=== PATIENT | male | born 1945 | race Caucasian/White ===

== ENCOUNTER 2022-12-11 08:12 | Day surgery (SDC) | payer MEDICARE, BC | END 2022-12-11 11:35 | disposition home or self-care (01) | LOC: RAD 08:12 | PROVIDERS: ATTEND Neurological Surgery | PROC: 00JU3ZZ Inspection of Spinal Canal, Percutaneous Approach (ICD-10-PCS; principal; 2022-12-11) | DX: G91.2 (Idiopathic) normal pressure hydrocephalus (principal) | CPT/HCPCS: 62270 ==

== ENCOUNTER 2023-01-21 05:42 | Inpatient (IN) | payer MEDICARE, BC ==
[2023-01-17 14:14] VITALS: BMI 23.7
[2023-01-21] MEDS ORDERED: EPINEPHrine 1 MG/ML VIAL ONE (06:12)
[2023-01-21] MEDS ORDERED: Lidocaine 1% (PF) 30 ML VIAL ONE (06:12)
[2023-01-21] MEDS ORDERED: Vancomycin 1 GM VIAL ONE (06:12)
[2023-01-21] MEDS ORDERED: Thrombin 5000 UNITS/5 ML VIAL ONE (06:12)
[2023-01-21] MEDS ORDERED: PROPOFOL 20 ML ONE (06:23)
[2023-01-21] MEDS ORDERED: fentaNYL PF 100 MCG/2 ML SYRINGE ONE (06:23)
[2023-01-21] MEDS ORDERED: Lidocaine 1% PF 5 ML VIAL ONE ×2 (06:24→07:12)
[2023-01-21] MEDS ORDERED: Rocuronium Bromide 10 MG/ML (10ML VIAL) ONE ×2 (06:24→07:12)
[2023-01-21] MEDS ORDERED: Vancomycin HCl 20 MG, Gentamicin (PEDI) 8 MG, Admixture Fee 1 EACH in Sodium Chloride 0... FS SCH (06:30)
[2023-01-21 06:39] LABS: Hematocrit 29.9 % (42.0-52.0); Manual Diff?? YES; Mean Corpuscular HGB CONC 33.4 g/dL (32.0-36.0); Mean Corpuscular Hemoglobin 35.5 pg (27.0-31.0); Platelet Count 231 10x3/uL (130-400); RBC Distribution Width 26.6 % (11.5-14.5); Red Blood Cell (RBC) Count 2.82 mill/uL (4.70-6.10); White Blood Cell (WBC) Count 4.4 10x3/uL (4.8-10.8)
[2023-01-21 06:48] LABS: Delete Auto Diff?? YES
[2023-01-21] MEDS ORDERED: Vancomycin 1 GM/200 ML (FROZEN) BAG ONE (06:55)
[2023-01-21 06:59] LABS: INR-International Normal Ratio 1.4; Prothrombin Time 17.6 sec (12.0-14.7)
[2023-01-21 07:00] LABS: PTT 35.3 sec (22.9-36.1)
[2023-01-21] MEDS ORDERED: Glycopyrrolate 0.2 MG/ML 5 ML SYRINGE ONE ×2 (07:12→08:39)
[2023-01-21] MEDS ORDERED: NEOSTIGMINE 3 MG/3 ML SYR 3 MG/3 ML SYRINGE ONE ×2 (07:12→08:39)
[2023-01-21] MEDS ORDERED: Ondansetron PF 4 MG/2 ML Vial ONE ×2 (07:12→07:39)
[2023-01-21] MEDS ORDERED: ePHEDrine Sulfate 50 MG/10 ML VIAL ONE ×2 (07:12→07:53)
[2023-01-21] MEDS ORDERED: PHENYLEPHRINE-NS 100 MCG/ML 10 ML SYRINGE ONE ×2 (07:12→08:27)
[2023-01-21] MEDS ORDERED: Dexamethasone 20 MG/5 ML VIAL ONE ×2 (07:12→07:39)
[2023-01-21] MEDS ORDERED: PROPOFOL 200 MG/20 ML VIAL ONE (07:12)
[2023-01-21 07:41] LABS: Band 1 % (5-11); Eosinophils 2 % (0-10); Monocytes 13 % (0-10); Myelocyte 1 % (0-0); Nucleated RBC (Manual Ct) 2 % (0)
[2023-01-21 07:43] LABS: Lymphocytes 29 % (21-51); Neutrophil 53 % (42-75)
[2023-01-21 07:44] LABS: Schistocytes SLIGHT = 2-5 cells (100X) (0-1/hpf)
[2023-01-21 07:45] LABS: Polychromasia SLIGHT = 2-3 cells (100X) (0-2/hpf)
[2023-01-21 07:46] LABS: Anisocytosis MODERATE=16-30 cells (100X) (0-5/hpf); Bite Cells SLIGHT = 2-5 cells (100X) (0-1/hpf); Platelet Adequacy Comment Platelets Normal
[2023-01-21] MEDS ORDERED: fentaNYL 50 mcg/mL 1 mL Vial ONE (08:53)
[2023-01-21] MEDS ORDERED: Docusate 100 MG CAP PO PRN (09:04)
[2023-01-21] MEDS ORDERED: Ondansetron PF 4 MG/2 ML Vial IVP PRN (09:04)
[2023-01-21] MEDS ORDERED: Mag-Al 1200 mg/1200 mg/30 ML UDCUP PO PRN (09:04)
[2023-01-21] MEDS ORDERED: Acetaminophen 325 MG TAB PO PRN (09:04)
[2023-01-21] MEDS ORDERED: diphenhydrAMINE 50 MG/ML VIAL IVP PRN (09:04)
[2023-01-21] MEDS ORDERED: Promethazine HCl 25 MG/ML VIAL IM PRN (09:04)
[2023-01-21] MEDS ORDERED: Fentanyl 250 MCG/5 ML VIAL ONE (09:23)
[2023-01-21] MEDS ORDERED: Loratadine 10 MG TAB PO PRN (09:35)
[2023-01-21] MEDS: Sodium Chloride 0.9% 1,000 ML IV SCH ×2 (10:25→21:50)
[2023-01-21] MEDS ORDERED: FLU VACC QS2023(65UP)/MF59C/PF 60 MCG/0.5 ML SYRINGE IM ONE (16:00)
[2023-01-21] MEDS: HYDROcodone/Acetaminophen 7.5/325 mg Tablet PO PRN (16:04)
[2023-01-21] MEDS: Morphine 2 MG/ML VIAL SLOW IVP PRN (17:10)
[2023-01-21] MEDS ORDERED: Dextrose 50% Abboject 50 ML SYRINGE SLOW IVP PRN (18:27)
[2023-01-21] MEDS ORDERED: Dextrose 5% in Water 1,000 ML IV PRN (18:27)
[2023-01-21] MEDS ORDERED: hydrALAZINE 20 MG/ML VIAL SLOW IVP PRN (18:27)
[2023-01-21] MEDS ORDERED: Glucagon 1 MG/ML KIT IM PRN (18:27)
[2023-01-21] MEDS: Atorvastatin Calcium 40 MG TAB PO SCH (21:49)
[2023-01-21] MEDS: Vancomycin (BATCH) 1.5 GM in Premix 1 BAG IVPB SCH (23:15)
[2023-01-22 05:59] LABS: #Monocytes 0.9 thou/uL (0.11-0.59); #Neutrophils 4.1 thou/uL (1.40-6.50); %Basophils 0.6 % (0.0-1.0); %Eosinophils 0.5 % (0.0-10.0); %Lymphocytes 18.6 % (21.0-51.0); %Monocytes 14.7 % (0.0-10.0); %Neutrophils 64.3 % (42.0-75.0); Hematocrit 26.4 % (42.0-52.0); Mean Corpuscular HGB CONC 34.1 g/dL (32.0-36.0); Mean Corpuscular Hemoglobin 36.1 pg (27.0-31.0); Mean Platelet Volume 12.5 fL (7.4-10.4); Platelet Count 240 10x3/uL (130-400); RBC Distribution Width 26.6 % (11.5-14.5); Red Blood Cell (RBC) Count 2.49 mill/uL (4.70-6.10); White Blood Cell (WBC) Count 6.4 10x3/uL (4.8-10.8)
[2023-01-22 06:29] LABS: Hemoglobin A1c 9.4 % (4.0-6.0)
[2023-01-22 06:44] LABS: Anion Gap 12 mmol/L (10-20); BUN (Urea Nitrogen) 21 mg/dL (8.4-25.7); Calc. Creatinine Clearance 66 mL/min (70-130); Calcium 8.4 mg/dL (7.8-10.44); Carbon Dioxide 25 mmol/L (23-31); Chloride 103 mmol/L (98-107); Estimated GFR 77; Glucose 196 mg/dL (83-110); Sodium 136 mmol/L (136-145)
[2023-01-22] MEDS ORDERED: Losartan 25 MG TAB PO SCH (09:00)
[2023-01-22] MEDS: Insulin Glargine 30 UNITS/0.3 ML VIAL SC SCH ×2 (09:28→22:13)
[2023-01-22] MEDS: Losartan 25 MG TAB PO SCH (09:28)
[2023-01-22] MEDS: Hydrochlorothiazide 25 MG TAB PO SCH (09:29)
[2023-01-22] MEDS: HYDROcodone/Acetaminophen 7.5/325 mg Tablet PO PRN (09:29)
[2023-01-22] MEDS: Vancomycin (BATCH) 1.5 GM in Premix 1 BAG IVPB SCH (09:30)
[2023-01-22] MEDS: Sodium Chloride 0.9% 1,000 ML IV SCH (12:36)
[2023-01-22] MEDS: Morphine 2 MG/ML VIAL SLOW IVP PRN (12:57)
[2023-01-22] MEDS: HumaLOG 300 UNITS/3 ML VIAL SC PRN ×2 (12:57→18:07)
[2023-01-22] MEDS: Atorvastatin Calcium 40 MG TAB PO SCH (20:29)
[2023-01-23] MEDS: Sodium Chloride 0.9% 1,000 ML IV SCH ×3 (01:11→22:16)
[2023-01-23 05:29] LABS: Hematocrit 24.6 % (42.0-52.0); Hemoglobin 8.7 g/dL (14.0-18.0); Mean Corpuscular HGB CONC 35.4 g/dL (32.0-36.0); Mean Corpuscular Hemoglobin 36.3 pg (27.0-31.0); Platelet Count 226 10x3/uL (130-400); White Blood Cell (WBC) Count 7.3 10x3/uL (4.8-10.8)
[2023-01-23 05:36] LABS: Mean Corpuscular Volume 102.5 fl (78.0-98.0)
[2023-01-23 05:54] LABS: Anion Gap 12 mmol/L (10-20); BUN (Urea Nitrogen) 19 mg/dL (8.4-25.7); Calc. Creatinine Clearance 73 mL/min (70-130); Calcium 8.3 mg/dL (7.8-10.44); Carbon Dioxide 24 mmol/L (23-31); Chloride 100 mmol/L (98-107); Estimated GFR 86; Glucose 146 mg/dL (83-110); Potassium 3.5 mmol/L (3.5-5.1); Sodium 132 mmol/L (136-145)
[2023-01-23] MEDS: Hydrochlorothiazide 25 MG TAB PO SCH (08:17)
[2023-01-23] MEDS: Losartan 25 MG TAB PO SCH (08:18)
[2023-01-23] MEDS: Insulin Glargine 30 UNITS/0.3 ML VIAL SC SCH ×2 (08:18→20:05)
[2023-01-23 09:42] LABS: Bilirubin Negative (Negative); Blood, Urine Moderate (Negative); Clarity Clear (Clear); Glucose, Urine (Dipstick) >=1000 mg/dL (Negative); Ketone, Urine Negative (Negative); Leukocyte Negative (Negative); Nitrite Negative (Negative); Protein, Urine (Dipstick) 30 mg/dL (Neg-Trace); Specific Gravity, Urine 1.025 (1.005-1.030)
[2023-01-23 09:47] LABS: Bacteria/HPF None Seen HPF (None Seen); CAUTI Indications for Culture Alt mental st,lethar; Squamous Epithelial 0-3 HPF (0-3); WBC/HPF 0-3 HPF (0-3)
[2023-01-23 09:49] LABS: Urine Culture Reflex No No
[2023-01-23] MEDS: HumaLOG 300 UNITS/3 ML VIAL SC PRN ×3 (12:42→20:07)
[2023-01-23] MEDS: Atorvastatin Calcium 40 MG TAB PO SCH (20:01)
[2023-01-23] MEDS ORDERED: QUEtiapine 25 MG TAB PO SCH (21:00)
[2023-01-24] MEDS: Insulin Glargine 30 UNITS/0.3 ML VIAL SC SCH (08:23)
[2023-01-24] MEDS: Losartan 25 MG TAB PO SCH (08:26)
[2023-01-24] MEDS: Hydrochlorothiazide 25 MG TAB PO SCH (08:27)
[2023-01-24] MEDS ORDERED: FLU VACC QS2023(65UP)/MF59C/PF 60 MCG/0.5 ML SYRINGE IM ONE (15:15)
[2023-01-24] MEDS: HumaLOG 300 UNITS/3 ML VIAL SC PRN (15:39)
[2023-01-24 16:09] VITALS: BP 119/70; TEMP 98.1
== END 2023-01-24 15:43 | DRG 33 ==
LOC: SDC 05:42 → SURG B 09:08
PROVIDERS: ADMIT Neurological Surgery; ATTEND Neurological Surgery
PROC: 00160J6 Bypass Cerebral Ventricle to Peritoneal Cavity with Synthetic Substitute, Open Approach (ICD-10-PCS; principal; 2023-01-21)
DX: G91.2 (Idiopathic) normal pressure hydrocephalus (principal); I10 Essential (primary) hypertension; E11.9 Type 2 diabetes mellitus without complications; I25.10 Atherosclerotic heart disease of native coronary artery without angina pectoris; Z98.49 Cataract extraction status, unspecified eye; Z79.82 Long term (current) use of aspirin; Z79.899 Other long term (current) drug therapy; Z82.49 Family history of ischemic heart disease and other diseases of the circulatory system; D72.819 Decreased white blood cell count, unspecified; D53.9 Nutritional anemia, unspecified
CPT/HCPCS: 36415; 36416; 80048; 81001; 82607; 83036; 84443; 85025; 85027; 85046; 85610; 85730; 90471; 90694; C1729; C1750; C1889; G0008; J0171; J1100; J1580; J1815; J2001; J2272; J2405; J2704; J3010; J3370; J3370-JW; J7050

== ENCOUNTER 2023-01-29 14:51 | Outpatient (CLI) | payer MEDICARE, BC | END 2023-01-29 14:52 | disposition home or self-care (01) | LOC: CT 14:51 | PROVIDERS: ATTEND Neurological Surgery | DX: G91.2 (Idiopathic) normal pressure hydrocephalus (principal); G93.89 Other specified disorders of brain; Z98.2 Presence of cerebrospinal fluid drainage device | CPT/HCPCS: 70450 ==